=== PATIENT | male | born 1995 ===

== ENCOUNTER 2024-08-21 18:49 | Emergency (ER) | payer MEDICARE, OTHER ==
[~2024-08-21] VITALS: Ht 182.9 cm; Wt 122.0 kg
[2024-08-21] MEDS: HALOPERIDOL LACTATE 5 MG/ML VIAL IM ONE (19:15)
[2024-08-21] MEDS: LORazepam 2 MG/ML VIAL IM ONE (19:15)
[2024-08-21] MEDS: DiphenhydrAMINE HCL 50 MG/ML VIAL IM ONE (19:15)
[2024-08-21 19:18] VITALS: BP 143/79; PULSE 94; RESP 18; O2SAT 99
[2024-08-21] MEDS: PERTUSS(ACELL),DIPH,TET/PF 0.5 ML SYRINGE [ADULT] IM. ONE (19:52)
[2024-08-21] MEDS: BACITRACIN 0.9 GM PACKET OINTMENT TP ONE (19:52)
[2024-08-21] MEDS: AMOX TR/POT CLAV 875 MG/125 MG TABLET PO ONE (19:52)
[2024-08-21] MEDS: IBUPROFEN 600 MG TABLET PO ONE (19:53)
[2024-08-21] MEDS: SODIUM CHLORIDE 0.9% 250 ML IRRIG SOLUTION BOTTLE IRRIG ONE (20:01)
[2024-08-21 20:16] LABS: BASOPHILS % (AUTO) 0.4 % (0.0-2.0); EOSINOPHILS % (AUTO) 0.4 % (1.0-6.0); HEMATOCRIT 41.5 % (41-53); HEMOGLOBIN 14.1 g/dL (13.5-17.5); LYMPHOCYTES # (AUTO) 2.1 K/uL (1.0-4.8); LYMPHOCYTES % (AUTO) 21.6 % (22.0-44.0); MEAN CORPUSCULAR HGB CONC 33.9 G/dL (31.0-37.0); MEAN CORPUSCULAR VOLUME 92 fL (80-100); MONOCYTES # (AUTO) 0.9 K/uL (0.1-1.0); MONOCYTES % (AUTO) 9.5 % (2.0-9.0); NEUTROPHILS # (AUTO) 6.7 K/uL (1.8-7.7); NEUTROPHILS % (AUTO) 68.1 % (40.0-70.0); PLATELET COUNT (AUTO) 256 K/uL (150-450); RED BLOOD CELL COUNT(AUTO) 4.53 MIL/uL (4.50-5.90); RED CELL DISTRIBUTION WIDTH 12.6 % (11.5-14.5); WHITE BLOOD COUNT (AUTO) 9.9 K/uL (4.5-11.0)
[2024-08-21 20:31] LABS: ANION GAP 13 mmol/L (8-16); CALCIUM, TOTAL 8.8 mg/dL (8.8-10.5); CARBON DIOXIDE 26 mmol/L (22-29); CHLORIDE 103 mmol/L (98-107); CREATININE 0.93 mg/dL (0.60-1.30); GLOMERULAR FILTR. RATE CALC > 60 mL/min (>60); GLUCOSE,RANDOM 104 mg/dL (70-110); POTASSIUM 3.6 mmol/L (3.5-5.1); SODIUM SERUM 142 mmol/L (136-145); UREA NITROGEN, BLOOD 21 mg/dL (7-18)
[2024-08-21 20:37] LABS: ALCOHOL, BLOOD (SERUM) < 3 mg/dL (0-10)
[2024-08-21 20:48] LABS: VALPROIC ACID 49 mcg/mL (50-100)
== END 2024-08-21 23:43 ==
LOC: EMS 18:49
DX: S61.532A Puncture wound without foreign body of left wrist, initial encounter (principal); Z02.89 Encounter for other administrative examinations; R53.83 Other fatigue; F20.9 Schizophrenia, unspecified; Z23 Encounter for immunization; W54.0XXA Bitten by dog, initial encounter; Y93.89 Activity, other specified; Y92.89 Other specified places as the place of occurrence of the external cause; Y99.8 Other external cause status
CPT/HCPCS: 99291; 80048; 80164; 85025; 36415; 73090; 73110; 90715; 90471; 96372; G0480; J1200; J1630; J2060